=== PATIENT | female | born 2000 | race Caucasian/White ===

== ENCOUNTER 2024-02-18 20:36 | Emergency (ER) | payer OTHER, SELFPAY ==
[2024-02-18 21:05] VITALS: BP 145/75; PULSE 95; RESP 20; TEMP 36.8; O2SAT 99; BMI 32.0
[2024-02-18 21:21] LABS: Appearance Urine Clear (Clear); Bilirubin Urine Negative (Negative); Blood Urine 2+ (Negative); Color Urine Yellow (Yellow); Glucose Urine Negative (Negative); Ketones Urine Negative (Negative); Leukocyte Esterase Urine 1+ (Negative); Nitrite Urine Positive (Negative); Protein Urine Trace (Negative); Urobilinogen Urine 0.2 (0.2-1.0)
[2024-02-18 21:25] LABS: Bacteria Urine Few; Squamous Epithelial Cell Urine Few (None-Few)
[2024-02-18 21:26] LABS: Ur HCG Qualitative* Negative (Negative)
--- NOTE | 2024-02-18 21:31 | CRLHL7_ITS ---
For Patients: As a result of the Century Cures Act, medical imaging exams and procedure reports are released immediately into your electronic medical record. You may view this report before your referring provider. If you have questions, please contact your health care provider. INDICATION: Left flank pain, UTI. TECHNIQUE: CT of the abdomen and pelvis acquired with 85 cc of Isovue 370 IV contrast. Coronal and sagittal reconstructions. COMPARISON: None. FINDINGS: Liver: Normal in size and attenuation. No focal liver lesions. Gallbladder and bile ducts: Unremarkable. No biliary dilation. Spleen: Unremarkable. Pancreas: Unremarkable. Adrenal glands: Unremarkable. Kidneys: Symmetric enhancement. No hydronephrosis or obstructing urinary calculi. Urothelial enhancement along the course of the left ureter. Mild circumferential bladder wall thickening. Reproductive organs: Uterus is unremarkable. There is a 2.2 cm rim enhancing corpus luteal cyst in the left ovary. GI tract/Peritoneum: No small bowel dilation. Moderate to large amount of stool throughout the colon. Negative appendix. No intraperitoneal free air or fluid. Vasculature: Abdominal aorta is normal in caliber. Mesenteric arteries appear patent. Lymph nodes: No lymphadenopathy. Abdominal Wall: Small focal region of skin thickening and subcutaneous fat stranding in the midline lower anterior abdominal wall, likely inflammatory or related to injections. Bones: Unremarkable. Lower chest: Unremarkable. IMPRESSION: 1. Bladder wall thickening with urothelial enhancement along the course of the left ureter. Findings suggest ascending urinary tract infection. No definite CT evidence of acute pyelonephritis. Correlate with urinalysis. 2. Corpus luteal cyst in the left ovary. Please note that all CT scans at this facility use dose modulation, iterative reconstruction, and/or weight-based dosing when appropriate to reduce radiation dose to as low as reasonably achievable. Dictated by Bettina Abreu MD @ 02/18/2024 11:08:51 PM (Electronically Signed)
[2024-02-18] MEDS: MORPHINE 4 MG/ML INJ IVP (21:49)
[2024-02-18] MEDS: ONDANSETRON 2 MG/ML inj 4 MG IVP (21:49)
[2024-02-18] MEDS: LACTATED RINGERS 1000 ML 1,000 ML IV (21:50)
[2024-02-18 21:56] LABS: Basophils Absolute Auto 0.05 K/uL (0.00-0.30); Basophils Percent Auto 0.8 % (0.0-3.0); Eosinophils Absolute Auto 0.02 K/uL (0.00-0.50); Eosinophils Percent Auto 0.3 % (0.0-7.0); Hematocrit 34.5 % (33.0-51.0); Hemoglobin* 10.9 gm/dL (12.0-16.0); Lymphocytes Absolute Auto 1.64 K/uL (0.90-2.90); Lymphocytes Percent Auto 25.1 % (20-44); Mean Corpuscular HGB Conc 32 gm/dL (32-36); Mean Corpuscular Hemoglobin 27 pg (26-34); Mean Corpuscular Volume 87 fL (80-100); Monocytes Percent Auto 7.8 % (0.0-11.0); Neutrophils Absolute Auto 4.31 K/uL (1.7-7.0); Platelet Count* 280 K/uL (140-440); RDW Coefficient of Variation % 14.3 % (11.5-15.5); Red Blood Count 3.98 m/uL (4.00-5.20); White Blood Count* 6.53 K/uL (4.50-11.00)
[2024-02-18 22:00] VITALS: O2SAT 98
[2024-02-18 22:09] LABS: Albumin* 4.5 g/dL (3.3-5.0); Chloride* 103 mmol/L (96-114)
[2024-02-18 22:10] LABS: Sodium* 138 mmol/L (135-149)
[2024-02-18 22:12] LABS: Alkaline Phosphatase* 60 U/L (40-150); Anion Gap 9 mEq/L (7-15); Aspartate Amino Transferase* 23 U/L (12-35); Bilirubin Total* 0.5 mg/dL (0.1-1.5); Blood Urea Nitrogen* 13 mg/dL (5-24); Carbon Dioxide* 26 mmol/L (20-32); Creatinine* 0.7 mg/dL (0.5-1.5); Est. Creatinine Clearance* 97.17; Estimated Glomerular Filt Rate 123 ml/min; Total Protein* 7.7 g/dL (6.0-8.3)
[2024-02-18 22:13] LABS: Alanine Aminotransferase* 13 U/L (4-35); Calcium* 9.8 mg/dL (8.4-10.6); Glucose* 92 mg/dL (60-115)
[2024-02-18 22:23] LABS: Slide Review Reflex No
--- NOTE | 2024-02-18 22:40 | ED.GENADULT ---
HPI - General Adult General Date Seen: 02/18/24 Chief complaint: Flank Pain Stated complaint: Abdominal pain Time Seen by Provider: 02/18/24 21:09 Source: patient Mode of arrival: ambulatory Limitations: no limitations History of Present Illness HPI narrative: Patient is a 24-year-old female presenting to emergency department for flank pain and concerns of a UTI. She states starting last night she started having left flank pain and a UTI. She states the pain seems to start in the left upper quadrant radiate to the left flank. Denies having symptoms like this before. States is a sharp severe pain is she has never had pain like this before. Has had some dysuria and that is why she thinks she has a UTI. Has not any fevers, nausea/vomiting, diarrhea. Took 2 Advil prior to arrival with no improvement in her symptoms. No history of kidney stones. Has never had pyelonephritis before. No other concerns noted at this time. Has been eating and drinking without issues. Pain has been getting worse. Related Data Home Medications ?Medication ?Instructions ?Recorded ?Confirmed No Known Home Medications 02/18/24 02/18/24 Allergies Allergy/AdvReac Type Severity Reaction Status Date / Time clindamycin Allergy Intermediate Hives Verified 02/18/24 21:08 hydrocodone AdvReac Mild Nausea Verified 02/18/24 21:08 tramadol AdvReac Mild Nausea Verified 02/18/24 21:08 Review of Systems Status of ROS: Reports: 10 or more systems reviewed and unremarkable except as noted in History and below PFSH PFS Social History Smoking Status: Unknown if ever smoked Exam Narrative: Exam Narrative: Const: Well-nourished, Well-developed, in moderate distress Eyes: PERRL, no conjunctival injection, and symmetrical lids HENT: Atraumatic external nose and ears. Moist mucous membranes. Neck: Symmetric, trachea midline, No thyromegaly. CVS: RRR, No murmurs or gallops. Peripheral pulses 2+ and equal in all extremities RESP: Unlabored respiratory effort. Clear to auscultation bilaterally. GI: Left upper quadrant and left CVA tenderness. Nondistended, No rebound or guarding. MSK:Extremities w/o deformity, Normal Active ROM Skin: Warm, Dry. No rashes or lesions. Neuro: Normal Muscle tone, No focal neurological deficits. Psych: Awake, Alert, & Oriented x3. Appropriate mood and affect. Const: Vital Signs, click to edit/add: Vital Signs - 24 hr 02/18/24 21:05 02/18/24 22:43 Temperature 98.2 F Pulse Rate 75 Pulse Rate [Right Pulse Oximeter] 95 Respiratory Rate 20 Blood Pressure [Ri ght Upper Arm] 145/75 H Pulse Oximetry 99 99 Oxygen Delivery Me thod Room Air Room Air Course Vital Signs Vital signs: Initial Vital Signs Temperature 98.2 F 02/18/24 21:05 Temperature Source Temporal Artery Scan 02/18/24 21:05 Pulse Rate 95 02/18/24 21:05 Respiratory Rate 20 02/18/24 21:05 Blood Pressure 145/75 H 02/18/24 21:05 Blood Pressure Mean 98 02/18/24 21:05 Blood Pressure Position Sitting 02/18/24 21:05 Pulse Oximetry 99 02/18/24 21:05 Oxygen Delivery Method Room Air 02/18/24 21:05 Vital Signs Temperature 98.2 F 02/18/24 21:05 Pulse Rate 95 02/18/24 21:05 Respiratory Rate 20 02/18/24 21:05 Blood Pressure 145/75 H 02/18/24 21:05 Pulse Oximetry 99 02/18/24 21:05 Oxygen Delivery Method Room Air 02/18/24 21:05 Temperature 98.2 F 02/18/24 21:05 Pulse Rate 75 02/18/24 22:43 Respiratory Rate 20 02/18/24 21:05 Blood Pressure 145/75 H 02/18/24 21:05 Pulse Oximetry 99 02/18/24 22:43 Oxygen Delivery Method Room Air 02/18/24 22:43 Medications Administered Medications: Discontinued Medications Generic Name Dose Route Start Last Admin Trade Name Freq PRN Reason Stop Dose Admin Lactated Ringer's 1,000 mls @ 1,000 mls/hr 02/18/24 21:31 02/18/24 22:43 Lactated Ringers 1000 Ml IV 02/18/24 22:30 Infused .Q1H ONE Infusion Morphine Sulfate 4 mg 02/18/24 21:31 02/18/24 21:49 Morphine 4 Mg/Ml Inj IVP 02/18/24 21:32 4 mg ONCE ONE Administration Ondansetron HCl 4 mg 02/18/24 21:31 02/18/24 21:49 Ondansetron 2 Mg/Ml Inj IVP 02/18/24 21:32 4 mg ONCE ONE Administration Medical Decision Making MDM Narrative Medical decision making narrative: Patient is a 24-year-old female presenting for left flank pain. Symptoms started yesterday and are continuing. Is having signs of UTI. Do this IM concerned about pyelonephritis and I will do a CT scan of the abdomen pelvis to look for pyelonephritis and possible kidney stone. She is not meeting sirs criteria at this time and lactate not ordered. Will order CBC, CMP, lipase, urinalysis, urine test. Morphine given for pain and Zofran for possible nausea that morphine can cause. Will also give her a L of lactated Ringer's. Urinalysis appears to show a UTI. He will is slightly low at 10.9 but this is unlikely to cause of her symptoms. CMP shows no concerning findings. Symptoms improved with the medication. CT scan returned showing cystitis along with stranding going up the ureter consistent with her pain. She is feeling much better at this time and I will discharge her home with Zofran, oxycodone, Cipro through [facility]. Also give her a dose of Cipro before discharge via her IV. They are agreeable to this plan. Will be discharged Lab Data Labs: Lab Results 02/18/24 02/18/24 Range/Units 21:09 21:43 WBC 6.53 (4.50-11.00) K/uL RBC 3.98 L (4.00-5.20) m/uL Hgb 10.9 L (12.0-16.0) gm/dL Hct 34.5 (33.0-51.0) % MCV 87 (80-100) fL MCH 27 (26-34) pg MCHC 32 (32-36) gm/dL RDW Coeff of Susana 14.3 (11.5-15.5) % Plt Count 280 (140-440) K/uL Neut % (Auto) 66.0 (42.0-72.0) % Lymph % (Auto) 25.1 (20-44) % King % (Auto) 7.8 (0.0-11.0) % Eos % (Auto) 0.3 (0.0-7.0) % Baso % (Auto) 0.8 (0.0-3.0) % Neut # (Auto) 4.31 (1.7-7.0) K/uL Lymph # (Auto) 1.64 (0.90-2.90) K/uL King # (Auto) 0.50 (0.00-0.90) K/UL Eos # (Auto) 0.02 (0.00-0.50) K/uL Baso # (Auto) 0.05 (0.00-0.30) K/uL Abs Immat Gran (auto) 0.00 (0.00-0.30) K/uL Imm/Tot Granulo (auto) 0.0 % Sodium 138 (135-149) mmol/L Potassium 4.0 (3.6-5.1) mmol/L Chloride 103 (96-114) mmol/L Carbon Dioxide 26 (20-32) mmol/L Anion Gap 9 (7-15) mEq/L BUN 13 (5-24) mg/dL Creatinine 0.7 (0.5-1.5) mg/dL Estimated Creat Clear 97.17 Estimated GFR 123 ml/min Glucose 92 (60-115) mg/dL Calcium 9.8 (8.4-10.6) mg/dL Total Bilirubin 0.5 (0.1-1.5) mg/dL AST 23 (12-35) U/L ALT 13 (4-35) U/L Alkaline Phosphatase 60 (40-150) U/L Total Protein 7.7 (6.0-8.3) g/dL Albumin 4.5 (3.3-5.0) g/dL Urine Color Yellow (Yellow) Urine Appearance Clear (Clear) Urine pH 7.0 (5.0-8.5) Ur Specific [place] 1.010 (1.000-1.030) Urine Protein Trace A (Negative) Urine Glucose (UA) Negative (Negative) Urine Ketones Negative (Negative) Urine Blood 2+ A (Negative) Urine Nitrite Positive A (Negative) Urine Bilirubin Negative (Negative) Urine Urobilinogen 0.2 (0.2-1.0) Ur Leukocyte Esterase 1+ A (Negative) Urine RBC 2-5 A (0-2) Urine WBC 5-10 A (0-5) Ur Squamous Epith Cells Few (None-Few) Urine Bacteria Few A (None) Urine HCG, Qual Negative (Negative) Imaging Data CT scan abdomen pelvis: Attestation: I have reviewed the pertinent imaging results. Radiologist's impression: 1. Bladder wall thickening with urothelial enhancement along the course of the left ureter. Findings suggest ascending urinary tract infection. No definite CT evidence of acute pyelonephritis. Correlate with urinalysis. 2. Corpus luteal cyst in the left ovary. Please note that all CT scans at this facility use dose modulation, iterative reconstruction, and/or weight-based dosing when appropriate to reduce radiation dose to as low as reasonably achievable. Dictated by Bettina Abreu MD @ 02/18/2024 11:08:51 PM Discharge Plan Discharge Clinical Impression: UTI (urinary tract infection) Qualifiers: Urinary tract infection type: urethritis Qualified Code(s): N34.2 - Other urethritis Patient Disposition: Home, Self-Care Condition: Improved Instructions: Urinary Tract Infection in Women (DC) Additional Instructions: Take all medications as prescribed. If symptoms worsen return to emergency department. Also return for any other new or worsening symptoms. Medications were up prescribed through [facility]. Prescriptions: No Action No Known Home Medications Follow Up/Referrals: Provider,Not a Local [Primary Care Provider] - Stand Alone Forms: [employer] Info Instructions
[2024-02-18 22:43] VITALS: PULSE 75; O2SAT 99
[2024-02-18 23:00] VITALS: PULSE 69; O2SAT 97
[2024-02-18 23:02] VITALS: BP 107/64; PULSE 74; RESP 18; O2SAT 98
[2024-02-18] MEDS: CIPROFLOXACIN 400 MG/200 ML PIGGYBACK 200 MG IVPB (23:15)
[2024-02-18 23:32] VITALS: BP 112/71; PULSE 75; RESP 16; O2SAT 98
[2024-02-19 00:10] VITALS: BP 110/74; PULSE 79; RESP 16; TEMP 36.8; O2SAT 98
[2024-02-19 00:31] VITALS: BP 110/74; PULSE 79; RESP 16; TEMP 36.8
== END 2024-02-19 00:31 | disposition home or self-care (01) ==
PROVIDERS: Emergency Provider Student in an Organized Health Care Education/Training Program
DX: N39.0 Urinary tract infection, site not specified (principal)
CPT/HCPCS: 36415; 74177; 80053; 81001; 81025; 85025; 87086; 87186; 94761; 96365; 96375; 99283; 99284; J0744; J2270; J2405; J7120; Q9967